=== PATIENT | female | born 1955 | race Caucasian/White ===

== ENCOUNTER 2016-06-28 13:54 | Emergency (ER) | payer MEDICAID ==
[~2016-06-28] VITALS: Ht 162.6 cm; Wt 71.7 kg
[2016-06-28 13:55] VITALS: BP 125/76
== END 2016-06-28 14:46 | disposition home or self-care (01) ==
LOC: ED 14:30
DX: N81.4 Uterovaginal prolapse, unspecified (principal)
CPT/HCPCS: 99281